=== PATIENT | male | born 1970 | race Caucasian/White ===

== ENCOUNTER 2018-03-19 13:55 | Emergency (ER) | END 2018-03-19 19:15 | disposition home or self-care (01) ==

== ENCOUNTER 2018-06-09 17:59 | Emergency (ER) | END 2018-06-09 20:30 | disposition home or self-care (01) ==

== ENCOUNTER 2018-11-07 05:15 | Emergency (ER) | payer OTHER ==
[~2018-11-07] VITALS: Ht 172.7 cm; Wt 83.2 kg
[~2018-11-07 05:15] MED LIST: BENZ-5 PO; DOCU100T PO; ESCI10TA48 PO; FOLI-49 PO; FURO20TA3 PO; INSU100C SQ; INSU100I33 SC; LACO100T3 PO; LACT20SO2 PO; LEVE10006 PO; LISI-313 PO; OMEP20CA16 PO; TRA100 PO
[2018-11-07 05:26] VITALS: Ht 172.7 cm; Wt 83.2 kg
[2018-11-07] MEDS ORDERED: LEVE750T70 PO (06:39)
--- NOTE | 2018-11-07 06:43 | ERD ---
ER Documentation Chief Complaint Chief Complaint [facility] from [facility] per EMS 36,rec'd oral glucose,BHA & neck pain HPI This a 48-year-old male who was brought in by [facility] via EMS for low blood sugar. The patient states that he was feeling dizzy and sleepy and they checked his blood sugar and it was low. EMS reports a glucose of 36 and he was given oral glucose and when they gave him this his symptoms went away. He says that he takes insulin 50 units every morning and evening on top of 12 units with meals. He said he got his insulin last night but he did not he hardly any food for dinner. He has no complaints of any physical symptoms now but said he had a little bit of a headache when his sugar was low but now better. He denies any recent illness denies any chest pain shortness of breath or abdominal pain no GI symptoms. The patient takes Keppra for seizures but he thinks that he has been having some shaking episodes but is not losing any consciousness these are about 5 seconds of arm and leg twitching that stop over the past couple days ROS All systems reviewed and are negative except as per history of present illness. Medications Home Meds Active Scripts Levetiracetam* (Keppra*) 750 Mg Tablet, 750 MG PO BID, #60 TAB Prov:MARCELLO HUANG DO 11/07/18 Benzonatate* (Benzonatate*) 100 Mg Capsule, 100 MG PO TID, #1 BOTTLE Prov:JASPREET SALAS S. 08/20/18 Lactulose* (Lactulose*) 20 Gm/30 Ml Solution, 20 GM PO TID, #1 BOTTLE 4 Refills Prov:JASPREET SALAS S. 08/20/18 Furosemide* (Furosemide*) 20 Mg Tablet, 20 MG PO DAILY, #30 TAB 1 Refill Prov:JASPREET SALAS S. 08/20/18 Reported Medications Insulin Lispro (Humalog) 100 Unit/1 Ml Cartridge, 12 UNIT SQ WITH MEALS, EA 07/31/18 Insulin Glargine,Hum.rec.anlog (Basaglar Kwikpen U-100) 100 Unit/1 Ml Insuln.pen, 45 UNIT SC BID, EA 07/31/18 Omeprazole* (Omeprazole*) 20 Mg Capsule.dr, 20 MG PO DAILY, #30 CAP 07/31/18 Docusate Sodium* (Dok*) 100 Mg Tablet, 100 MG PO BID, #60 CAP 06/09/18 Trazodone Hcl* (Trazodone Hcl*) 100 Mg Tablet, 100 MG PO QHS, #30 TAB 06/09/18 Folic Acid* (Folic Acid*) 1 Mg Tablet, 1 MG PO DAILY, TAB 06/09/18 Escitalopram Oxalate* (Escitalopram Oxalate*) 10 Mg Tablet, 10 MG PO DAILY, #30 TAB 06/09/18 Levetiracetam* (Levetiracetam*) 1,000 Mg Tablet, 1000 MG PO BID, TAB 06/09/18 Lacosamide (Vimpat) 100 Mg Tablet, 100 MG PO BID, TAB 06/09/18 Lisinopril* (Lisinopril*) 5 Mg Tablet, 5 MG PO DAILY, #30 TAB 06/09/18 Allergies Allergies: Coded Allergies: No Known Allergy (Unverified , 07/31/18) PMhx/Soc History of Surgery: Yes (CERVICAL SURGERY -3 YRS AGO) Anesthesia Reaction: No Hx Neurological Disorder: Yes (SEIZURE,FORGETFUL) Hx Respiratory Disorders: No Hx Cardiac Disorders: Yes ([place] 2016,HTN,hypotension) Hx Psychiatric Problems: No Hx Miscellaneous Medical Probl: Yes (hypoglycemia,ETOH dependence) Hx Alcohol Use: Yes (quit,hx ETOH abuse) Hx Substance Use: No Hx Tobacco Use: Yes Smoking Status: Never smoker FmHx Family History: No coronary disease Physical Exam Vitals Vital Signs Date Temp Pulse Resp B/P (MAP) Pulse Ox O2 O2 Flow FiO2 Time Delivery Rate 11/07/18 68 12 106/58 98 Room Air 06:00 (74) 11/07/18 75 14 120/68 99 Room Air 05:30 (85) 11/07/18 97.5 77 15 127/69 99 05:26 (88) Physical Exam Const: Well-developed, well-nourished Head: Atraumatic, normocephalic Eyes: Normal Conjunctiva, PERRLA, EOMI, normal sclera, no nystagmus ENT: Normal External Ears, Nose and Mouth, moist mucus membranes. Neck: Full range of motion. No meningismus, no lymphadenopathy. Resp: Clear to auscultation bilaterally, no wheezing, rhonchi, rales Cardio: Regular rate and rhythm, no murmurs, S1 S2 present Abd: Soft, non tender x 4, non distended. Normal bowel sounds, no guarding or rebound, no pulsitile abdominal masses or bruits Skin: No petechiae or rashes, no ecchymosis , no maculopapular rash Back: No midline or flank tenderness Ext: No cyanosis, or edema, FROM x 4, normal inspection, neuro vascularly intact x 4 Neur: Awake and alert, STR 5/5 x 4, sensation intact x 4, no focal findi ngs, cerebellum intact Psych: Normal Mood and Affect Result Diagram: 11/07/18 0547 11/07/18 0547 Results 24 hrs Laboratory Tests Test 11/07/18 05:22 11/07/18 05:47 11/07/18 06:34 Bedside Glucose 141 mg/dL 105 mg/dL White Blood Count 3.6 10^3/ul Red Blood Count 3.75 10^6/ul Hemoglobin 12.0 g/dl Hematocrit 34.5 % Mean Corpuscular Volume 92.0 fl Mean Corpuscular Hemoglobin 32.0 pg Mean Corpuscular 34.8 g/dl Hemoglobin Concent Red Cell Distribution Width 13.5 % Platelet Count 84 10^3/UL Mean Platelet Volume 9.2 fl Immature Granulocytes % 0.000 % Neutrophils % 58.7 % Lymphocytes % 29.8 % Monocytes % 5.3 % Eosinophils % 5.6 % Basophils % 0.6 % Nucleated Red Blood Cells % 0.0 /100WBC Immature Granulocytes # 0.000 10^3/ul Neutrophils # 2.1 10^3/ul Lymphocytes # 1.1 10^3/ul Monocytes # 0.2 10^3/ul Eosinophils # 0.2 10^3/ul Basophils # 0.0 10^3/ul Nucleated Red Blood Cells # 0.0 10^3/ul Sodium Level 141 mmol/L Potassium Level 3.5 mmol/L Chloride Level 106 mmol/L Carbon Dioxide Level 26 mmol/L Anion Gap 9 Blood Urea Nitrogen 12 mg/dl Creatinine 0.69 mg/dl Est Glomerular Filtrat Rate mL/min > 60 mL/min Glucose Level 126 mg/dl Calcium Level 9.3 mg/dl Procedures/MDM Patient's vitals and labs are relatively stable. Patient probably just an eating of food last night after dinner and instructed him to eat more food and to see his doctor as he may need to lower his insulin dosages. He is taking 500 of Keppra twice a day I will give him prescription for 750 may be having some type of focal seizure Departure Diagnosis: Primary Impression: Hypoglycemia Condition: Stable Patient Instructions: Hypoglycemia (Low Blood Sugar) Referrals: [facility] (PCP) MARCELLO HUANG DO Nov 07, 2018 06:43
[2018-11-07 07:15] VITALS: BP 124/75; PULSE 71; RESP 14
== END 2018-11-07 07:20 | disposition home or self-care (01) ==
LOC: E/R 05:15
DX: E11.65 Type 2 diabetes mellitus with hyperglycemia (principal); I10 Essential (primary) hypertension; I25.2 Old myocardial infarction; Z79.4 Long term (current) use of insulin; Z87.891 Personal history of nicotine dependence
CPT/HCPCS: 36415; 80048; 82962; 85025; Z7502; 99283

== ENCOUNTER 2018-11-09 04:07 | Emergency (ER) | payer OTHER ==
[~2018-11-09] VITALS: Ht 172.7 cm; Wt 84.1 kg
[~2018-11-09 04:07] MED LIST changes: +LEVE750T70 PO
[2018-11-09 04:18] VITALS: Ht 172.7 cm; Wt 84.1 kg
[2018-11-09 04:38] VITALS: BP 130/72; PULSE 94; RESP 16
--- NOTE | 2018-11-09 05:32 | ERD ---
ER Documentation Chief Complaint Chief Complaint hypoglycemia HPI This is a 40-year-old male brought in from [facility] for hypoglycemic episode. He was given D50 on route with resolution of his altered mental status. Patient was seen years recently for similar complaints. He says he did not eat after he took his insulin. Denies suicidal homicidal ideation. ROS All systems reviewed and are negative except as per history of present illness. Medications Home Meds Active Scripts Levetiracetam* (Keppra*) 750 Mg Tablet, 750 MG PO BID, #60 TAB Prov:MARCELLO HUANG DO 11/07/18 Benzonatate* (Benzonatate*) 100 Mg Capsule, 100 MG PO TID, #1 BOTTLE Prov:JASPREET SALAS S. 08/20/18 Lactulose* (Lactulose*) 20 Gm/30 Ml Solution, 20 GM PO TID, #1 BOTTLE 4 Refills Prov:JASPREET SALAS S. 08/20/18 Furosemide* (Furosemide*) 20 Mg Tablet, 20 MG PO DAILY, #30 TAB 1 Refill Prov:JASPREET SALAS S. 08/20/18 Reported Medications Insulin Lispro (Humalog) 100 Unit/1 Ml Cartridge, 12 UNIT SQ WITH MEALS, EA 07/31/18 Insulin Glargine,Hum.rec.anlog (Basaglar Kwikpen U-100) 100 Unit/1 Ml Insuln.pen, 45 UNIT SC BID, EA 07/31/18 Omeprazole* (Omeprazole*) 20 Mg Capsule.dr, 20 MG PO DAILY, #30 CAP 07/31/18 Docusate Sodium* (Dok*) 100 Mg Tablet, 100 MG PO BID, #60 CAP 06/09/18 Trazodone Hcl* (Trazodone Hcl*) 100 Mg Tablet, 100 MG PO QHS, #30 TAB 06/09/18 Folic Acid* (Folic Acid*) 1 Mg Tablet, 1 MG PO DAILY, TAB 06/09/18 Escitalopram Oxalate* (Escitalopram Oxalate*) 10 Mg Tablet, 10 MG PO DAILY, #30 TAB 06/09/18 Levetiracetam* (Levetiracetam*) 1,000 Mg Tablet, 1000 MG PO BID, TAB 06/09/18 Lacosamide (Vimpat) 100 Mg Tablet, 100 MG PO BID, TAB 06/09/18 Lisinopril* (Lisinopril*) 5 Mg Tablet, 5 MG PO DAILY, #30 TAB 06/09/18 Allergies Allergies: Coded Allergies: No Known Allergy (Unverified , 07/31/18) PMhx/Soc History of Surgery: Yes (CERVICAL SURGERY -3 YRS AGO) Anesthesia Reaction: No Hx Neurological Disorder: Yes (SEIZURE,FORGETFUL) Hx Respiratory Disorders: No Hx Cardiac Disorders: Yes ([place] 2016,HTN,hypotension) Hx Psychiatric Problems: No Hx Miscellaneous Medical Probl: Yes (hypoglycemia,ETOH dependence) Hx Alcohol Use: Yes (quit,hx ETOH abuse) Hx Substance Use: Yes (hx cocaine and marijuana use ) Hx Tobacco Use: Yes Smoking Status: Never smoker Physical Exam Vitals Vital Signs Date Temp Pulse Resp B/P (MAP) Pulse Ox O2 O2 Flow FiO2 Time Delivery Rate 11/09/18 98.2 94 16 130/72 96 Room Air 04:38 (91) 11/09/18 98.2 94 130/72 96 04:18 (91) Physical Exam Const: No acute distress Head: Atraumatic Eyes: Normal Conjunctiva ENT: Normal External Ears, Nose and Mouth. Neck: Full range of motion. No meningismus. Resp: Clear to auscultation bilaterally Cardio: Regular rate and rhythm, no murmurs Abd: Soft, non tender, non distended. Normal bowel sounds Skin: No petechiae or rashes Back: No midline or flank tenderness Ext: No cyanosis, or edema Neur: Awake and alert Psych: Normal Mood and Affect Result Diagram: 11/09/18 0510 Results 24 hrs Laboratory Tests Test 11/09/18 04:14 11/09/18 05:10 Bedside Glucose 140 mg/dL White Blood Count 3.2 10^3/ul Red Blood Count 3.43 10^6/ul Hemoglobin 11.3 g/dl Hematocrit 31.7 % Mean Corpuscular Volume 92.4 fl Mean Corpuscular Hemoglobin 32.9 pg Mean Corpuscular Hemoglobin Concent 35.6 g/dl Red Cell Distribution Width 13.6 % Platelet Count 82 10^3/UL Mean Platelet Volume 9.7 fl Immature Granulocytes % 0.300 % Neutrophils % 66.7 % Lymphocytes % 23.4 % Monocytes % 5.0 % Eosinophils % 4.0 % Basophils % 0.6 % Nucleated Red Blood Cells % 0.0 /100WBC Immature Granulocytes # 0.010 10^3/ul Neutrophils # 2.1 10^3/ul Lymphocytes # 0.8 10^3/ul Monocytes # 0.2 10^3/ul Eosinophils # 0.1 10^3/ul Basophils # 0.0 10^3/ul Nucleated Red Blood Cells # 0.0 10^3/ul Procedures/MDM EKG: Rate/Rhythm: [Normal Sinus Rhythm] QRS, ST, T-waves: [No changes consistent w/ acute ischemia] Impression: [No evidence of ischemia or arrhythmia] Chest X-ray 1V Interpreted by me: Soft Tissue: No acute abnormalities Bones: No acute abnormalities Mediastinum/Cardiac Silhouette/Lungs: [No acute abnormalities] Medical decision makin-year-old male with hypoglycemia secondary to insulin pain is medically stable for outpatient management. Patient will be discharged home. Follow-up with primary care physician. Return for worsening symptoms. Departure Diagnosis: Primary Impression: Hypoglycemia Condition: Stable Patient Instructions: Hypoglycemia (Low Blood Sugar) LUCY MAYORGA Nov 09, 2018 05:32
== END 2018-11-09 05:47 | disposition home or self-care (01) ==
LOC: E/R 04:07
DX: E11.649 Type 2 diabetes mellitus with hypoglycemia without coma (principal); I10 Essential (primary) hypertension; I25.2 Old myocardial infarction; Z79.4 Long term (current) use of insulin; Z87.891 Personal history of nicotine dependence
CPT/HCPCS: 36415; 71045; 80053; 82962; 84484; 85025; 93005; Z7502